=== PATIENT | female | born 1975 | race Caucasian/White ===

== ENCOUNTER → 2020-05-20 | Outpatient (CLI) | payer OTHER ==
[~2020-05-20] MED LIST: ALBU2.5V8 IH; BUDE10.2 IH; HYDR200T5 PO; IBUP1TAB84 PO; LISD60CA PO; THYR30TA PO
--- NOTE | 2020-05-20 16:18 | RAD ---
Left lower extremity venous Doppler dated 05/20/2020. No comparison available. Clinical data indication: Pain and swelling. FINDINGS: Grayscale, color-flow and spectral waveform analysis performed to include the deep venous system of the left lower extremity. There is normal compressibility, phasicity and augmentation of flow throughout. No filling defects are seen. Calf veins are not well evaluated. IMPRESSION: No evidence of left lower extremity deep vein thrombosis. Electronically signed by: James Franklin MD (05/20/2020 4:15 PM) [id number]
== END ==
LOC: MERGE 14:59 → PMG 14:59
PROVIDERS: ATTEND Physician Assistant
DX: M79.89 Other specified soft tissue disorders (principal); M79.605 Pain in left leg
CPT/HCPCS: 93971